=== PATIENT | male | born 1990 | race Caucasian/White ===

== ENCOUNTER 2019-02-27 16:22 | Emergency (ER) | payer OTHER ==
[~2019-02-27] VITALS: Ht 190.5 cm; Wt 110.2 kg
[2019-02-27 16:48] VITALS: BP 101/75
--- NOTE | 2019-02-27 16:54 | NUR ---
PT AMBULATED TO ER BED 02
--- NOTE | 2019-02-27 17:00 | NUR ---
28M C/O DIZZINESS AND DEHYDRATION. PT STATES HE HAS NOT HAD ANY WATER OR TAKEN HIS SEIZURE MEDICATIONS TODAY. PT HAS BEEN WALKING AROUND ALL MORNING IN THE SUN FOR SCHOOL AND WASN'T DRINKING WATER. DENIES LOSS OF CONSCIOUS/SYNCOPE. PT IS ALERT AND ANSWERING QUESTIONS APPROPRIATELY. STATES BLURRY VISION. PERRLA. STATES HE IS HEARING VOICES BUT THEY ARE CALMING. HX SEIZURES, LAST ONE YESTERDAY, PETIT MAL. STATES 7/10 "PULLING" CHEST PAIN RAD TO LEFT SHOULDER. STATES SOB. DENIES DIAPHORESIS, LIGHTHEADEDNESS. SZ PRECAUTIONS IN PLACE. HX: EPILEPSY, SCHIZOAFFECTIVE DISORDER, TESTICULAR CANCER RX: TEDDY MALDONADO
[2019-02-27] MEDS ORDERED: NACL 0.9% 1,000 ML IV ONE (17:45)
--- NOTE | 2019-02-27 18:29 | NUR ---
PT RESTING IN BED, NO C/O PAIN OR DISCOMFORT. SR ON MONITOR.
[2019-02-27 18:53] VITALS: BP 108/47
--- NOTE | 2019-02-27 18:53 | NUR ---
Patient discharged with v/s stable. Written and verbal after care instructions given and explained. Patient verbalized understanding. Ambulatory with steady gait. VSS. All questions addressed prior to discharge. Advised to follow up with PMD.
== END 2019-02-27 18:53 | disposition home or self-care (01) ==
LOC: MED 16:22
DX: T67.0XXA Heatstroke and sunstroke, initial encounter (principal); E86.0 Dehydration; F17.200 Nicotine dependence, unspecified, uncomplicated; R42 Dizziness and giddiness; G40.909 Epilepsy, unspecified, not intractable, without status epilepticus; F20.9 Schizophrenia, unspecified; Z85.47 Personal history of malignant neoplasm of testis; Z90.49 Acquired absence of other specified parts of digestive tract; Z88.8 Allergy status to other drugs, medicaments and biological substances; Z71.6 Tobacco abuse counseling; X30.XXXA Exposure to excessive natural heat, initial encounter; Y93.01 Activity, walking, marching and hiking; Y92.89 Other specified places as the place of occurrence of the external cause; Y99.8 Other external cause status
CPT/HCPCS: 93005; 96360; 99283; J7030